=== PATIENT | male | born 1985 | race Caucasian/White ===

== ENCOUNTER 2024-02-22 07:38 | Emergency (ER) | payer OTHER, SELFPAY ==
[2024-02-22 07:39] VITALS: BP 115/79
[2024-02-22 08:04] VITALS: BMI 28.0
--- NOTE | 2024-02-22 08:35 | ED.GENMED ---
History of Present Illness
General
Chief Complaint: Musculo-Skeletal Complaint
Source: patient
Time Seen by Provider: 02/22/24 08:04
Travel History
Have you had any contact with someone who has COVID-19?: No
Do you have any symptoms of coronavirus? Fever > 100 degrees, chills, cough, shortness of breath, sore throat, loss of taste or smell, muscle aches, or headache?: No
History of Present Illness
History of Present Illness:
This patient is a 38-year-old male presents emergency department complaints of right knee pain that started Thursday, and got worse on Thursday evening associated with swelling of his right knee. The swelling gradually subsided, however he then
noted that the swelling that was originally at his knee moved to the superior hooks area associated with pain. He denies specific trauma or falls although he is very active, exercises every day, and plays with his children often as he was on
Thursday. He presents today with pain related to the superior tib-fib area. When asked about fever chills he denies fever but notes that he did have chills for a very short period time yesterday. He denies numbness, tingling, focal weakness,
chest pain, shortness of breath, drainage, or other complaints.
Past History
Past History
ED Past Medical History: None
ED Past Surgical History: None
Social History
Tobacco: Non-smoker
Alcohol: Occasional
Drug: None
Personal:
Employment: Employed
Phy Exam
Physical Exam
Physical Exam:
GENERAL: Alert , in no apparent distress
EYE: pupils equal and reactive
NECK: Supple, no significant adenopathy.
ENT: o/p clr, mmm.
CARDIAC: Regular rate and rhythm .
LUNGS: Clear breath sounds bilaterally, no acute respiratory distress, no wheezes/rales/rhonchi
ABDOMEN: Soft, without focal tenderness, no r/g, no cvat
NEUROLOGICAL: Alert and oriented, no focal neuro deficits
SKIN: Warm and dry, skin intact.
MUSCULOSKELETAL: R le with area of mild redness/warmth, sts (min) and ttp at infrapatellar/superior tibfib area, well perfused. No streaking, fluctuance, crepitus, drainage. There is a healing abraision distal lateral R calf. No calf ttp. No
bony/st ttp at knee, sl dec rom of R knee.
PSYCH: Normal and appropriate interaction.
Course
Orders/Labs/Results
Orders:
Orders
02/22/24 07:43
Knee, Right 4 or More Views [CR Knee- Right 4 Or More View*] Urgent
Comment: right knee
Reason For Exam: pain and swelling since Thursday denies injury
02/22/24 08:48
Clindamycin HCl [Cleocin] 450 mg PO NOW STA
02/22/24 08:53
Crutches-Treatment ONCE
Vital Signs
Initial and Last Documented VS:
Initial Vital Signs
Temp Pulse Resp BP Pulse Ox
98.1 F 86 16 115/79 98
02/22/24 07:39 02/22/24 07:39 02/22/24 07:39 02/22/24 07:39 02/22/24 07:39
Last Documented Vital Signs
Temp Pulse Resp BP Pulse Ox
98.1 F 82 16 120/82 98
02/22/24 07:39 02/22/24 09:24 02/22/24 09:24 02/22/24 09:24 02/22/24 09:24
*Critical Care Note
Total Time (30-74mins, 75-104mins- exclusive of procedures): Not Applicable
Update Note
Update Note:
Patient presents to the Emergency Department with __R 'knee' pain
Number and Complexity of Problems Addressed at the Encounter
� Chronic conditions affecting care:
� Acute Exacerbation and/or Progression of Chronic Illness:
� Differential Diagnosis includes: But not limited to septic arthritis, bursitis, knee strain, etc. etc.
Amount and/or Complexity of Data to be Reviewed and Analyzed
� I performed an independent evaluation of and my interpretation is:
EKG:
CT:
Xrays: Read by me, no acute disease right knee
Laboratory Studies:
Other:
� Review of other/old records reveals:
� Clinical information was obtained by an independent historian:
� Prescriptions/Medications Considered but not given:
� Further testing considered but not performed:
Risk of Complications and/or Morbidity or Mortality of Patient Management
� Social determinants of health affecting care:
� Discussion with other providers (PCP, Hospitalists, Consultants, etc):
� Escalation of care including admission/observation vs risk of discharge considered: Long discussion with patient regarding his presumed diagnosis. I have very low suspicion for septic arthritis given his exam and history here.
He has almost full range of motion of his knee, and no skin findings noted at knee itself, no associated effusion. Strongly suspect cellulitis/bursitis in the infrapatellar area. Line drawn around perimeter of area of redness. Patient is aware
of the importance of very very close follow-up, ideally within the next 24 hours, and he also took a photo of the area at my recommendation. He will repeat be referred to orthopedics and/or his PCP for this close follow-up and we will start
antibiotics at this time. Pt declines knee immobilizer, agreeable to crutches, letitia MEDINA.
ED Attending Note
-
Portions of this chart may have been created with voice recognition software.� Occasional wrong word or��sound alike� substitutions may have occurred due to the inherent limitations of voice recognition software.
Discharge Plan
Departure
Patient Disposition: Home (Routine Discharge)
Date of Disposition: 02/22/24
Time of Disposition: 08:42
Patient with high blood pressure during this ER visit?: No
Condition: Good
Discharge Problem:
Cellulitis
Instructions: How to Use Crutches, Cellulitis (Skin Infection), Adult ED
Prescriptions:
New
clindamycin HCl 300 mg capsule
300 mg PO Q6H 7 Days Qty: 28 0RF
Referrals:
Donell Salomon MD [Active] - Tomorrow
Activity Restrictions/Additional Instructions:
IF YOU DEVELOP FEVER, CHILLS, INCREASING REDNESS/WARMTH/SWELLING OR PAIN, DRAINAGE, GET WORSE, DO NOT GET BETTER, OR OTHER WORRISOME SIGNS, GO TO THE ER IMMEDIATELY!
Interventions
Interventions:
*Risk Screen - Suicide Last Done: 02/22/24 08:04
*General Assessment Last Done: 02/22/24 08:04
*Neglect/Abuse Screening Last Done: 02/22/24 08:04
ED- Fall Risk Assessment Last Done: 02/22/24 08:04
*ED COVID-19 Vaccine History Last Done: 02/22/24 07:39
*Nursing Disposition Last Done: 02/22/24 09:24
ED-Musculoskeletal Assessment Last Done: 02/22/24 08:04
Discharge Date and Time
Discharge Date/Time: 02/22/24 09:15
[2024-02-22] MEDS: CLEOCIN 450 MG PO (09:02)
--- NOTE | 2024-02-22 09:15 | EDRN ---
Reviewed discharge instructions with patient. Verbalized understanding. Patient demonstrated proper technique with crutch use.
[2024-02-22 09:24] VITALS: BP 120/82
== END 2024-02-22 09:15 | disposition home or self-care (01) ==
LOC: EMR 07:38
PROVIDERS: EMERGENCY PHYSICIAN Emergency Medicine; FAMILY PHYSICIAN Internal Medicine
DX: L03.115 Cellulitis of right lower limb (principal)
CPT/HCPCS: 99283; 73564

== ENCOUNTER 2024-02-23 16:20 | Inpatient (IN) | payer OTHER, SELFPAY ==
[2024-02-23 12:15] VITALS: BP 130/89
[2024-02-23 12:36] LABS: % Basophils 0.6 % (0-2); % Eosinophils 1.3 % (0-6); % Immature Granulocytes 0.2 % (0-0.5); % Monocytes 8.1 % (1.7-9.3); % Neutrophils 60.8 % (42.2-75.2); Absolute Basophils 0.1 10^3/uL (0-0.2); Absolute Eosinophils 0.1 10^3/uL (0-0.7); Absolute Monocytes 0.8 10^3/uL (0.1-0.6); Absolute Neutrophils 6.2 10^3/uL (1.4-6.5); Hematocrit 41.8 % (39.0-52.0); Hemoglobin 14.1 g/dL (13.0-18.0); Mean Corp Hgb Conc. 33.7 g/dL (33.0-37.0); Mean Corpuscular Hgb 26.8 pg (27.0-31.0); Mean Corpuscular Volume 79.5 fL (80.0-94.0); Mean Platelet Volume 11.2 fL (7.4-10.4); Nucleated Red Blood Cells % 0 % (-); Platelet Count 227 10^3/uL (130-400); Red Blood Cell Count 5.26 10^6/uL (4.70-6.10); Red Cell Dist. Width 14.6 % (11.5-14.5); White Blood Cell Count 10.2 10^3/uL (4.8-10.8)
[2024-02-23 12:53] LABS: ALT (SGPT) 21 U/L (0-50); AST (SGOT) 26 U/L (17-59); Albumin 4.6 g/dl (3.5-5.0); Alkaline Phosphatase 66 U/L (38-126); Blood Urea Nitrogen 20 mg/dl (9-20); Calcium 9.5 mg/dl (8.4-10.2); Carbon Dioxide 27 mmol/L (22-30); Chloride 102 mmol/L (98-107); Glucose 98 mg/dl (70-99); Potassium 4.3 mmol/L (3.5-5.1); Sodium 138 mmol/L (135-145); Total Bilirubin 0.9 mg/dl (0.2-1.3); Total Protein 7.4 g/dl (6.3-8.2); eGFR > 60.00
--- NOTE | 2024-02-23 13:39 | ED.SKININJ ---
HPI-Injury
General
Chief Complaint: Skin Problem
Source: patient
Exam Limitations: none
Time Seen by Provider: 02/23/24 13:27
Nursing documentation reviewed up to this point in time: agreed with
Travel History
Have you had any contact with someone who has COVID-19?: No
Do you have any symptoms of coronavirus? Fever > 100 degrees, chills, cough, shortness of breath, sore throat, loss of taste or smell, muscle aches, or headache?: No
History of Present Illness-Injury
Initial Injury comments:
Patient seen in ED yesterday for erythema, pain, swelling right leg below right knee. Placed on Clindamycin 300mg QID. Has had 5 doses without improvement. Erythema continues to advance. Denies fever but feels chilled. Brought to ED by spouse
for eval. No history of trauma Has small abrasion to right lat calf. No redness swelling drainage from this site.
Past History
Past History
ED Past Medical History: None
ED Past Surgical History: None
Social History
Tobacco: Non-smoker
Alcohol: Occasional
Drug: None
Personal:
Employment: Employed
Review of Systems
Review of Systems
Allergies reviewed?: Yes
All Other Systems: ROS reviewed and negative except as documented in HPI and ROS
Constitutional: Reports chills
EENT: Reports no symptoms
Respiratory: Reports no symptoms
Cardiac: Reports no symptoms
ABD/GI: Reports no symptoms
: Reports no symptoms
Musculoskeletal: Reports joint pain (Pain to RLE)
Skin: Reports other (Erythema, swelling RLE)
Neurological: Reports no symptoms
Psychiatric: Reports no symptoms
Phy Exam
General Physical Exam
General Presentation: well appearing and no apparent distress
General age: appears stated age
General Skin: warm and dry
General Habitus: normal
Musculoskeletal Exam
Musculoskeletal Exam: neuro vasc intact and other (NO swelling or redness to knee. Full ROM to right knee)
Skin Exam
Skin Exam: warm/dry, no rash and other (Erythema, swelling, pain to RLE)
Psychiatric Exam
Psychiatric Exam: normal mood/affect
Course
Orders/Labs/Results
Orders:
Orders
02/23/24 Lunch
Regular
At Your Request: Full Participation
02/23/24 12:22
CBC/With Diff [Complete Blood Count/With Diff] Urgent
CMP [Comprehensive Metabolic Panel] Urgent
02/23/24 12:23
Blood Culture Urgent
RAJESH Source: Blood/Venous
Specimen Description:
02/23/24 13:36
US Non Vasc LOWER Ext RT Urgent
Comment:
Reason For Exam: Cellulitis vs abscess right proximal lower leg
02/23/24 13:56
Vancomycin 1 Gram/200 ml [Vancocin] 1 gram in 200 ml IV NOW
02/23/24 15:11
Blood Culture Urgent
RAJESH Source: Blood/Venous
Specimen Description:
02/23/24 16:03
Admit/Transfer Patient As Directed
Co-Sign Provider:
Level of Care: Inpatient admission
Assign to:: Medical/Surgical
Physician / Group: Aubrey Alexis - [facility]
Diagnosis: RLE cellulitis, bursitis
Reason for Hospitalization: RLE cellulitis, bursitis - IV Abx, ID and ortho evals
Expected length of stay greater than two midnights?: Yes
ELOS- Estimated Length of Stay in days: 3
I certify the patient meets the requirements for IP care: Yes
02/23/24 16:04
Code Status As Directed
Resuscitation Status: Full Code
02/23/24 16:06
INFECTIOUS DISEASE CONSULT Routine
Consulting Provider: Nereida Morales
Was physician already notified: Yes
ORTHOPEDIC CONSULT Routine
Consulting Provider: Nitin Kong
Was physician already notified: Yes
02/23/24 18:21
Acetaminophen [Tylenol] 650 mg PO Q4HPRN PRN
Enoxaparin Sodium [Lovenox] 40 mg SC QPM
Morphine Sulfate 2 mg IV Q4HPRN PRN
Ondansetron Injectable [Zofran] 4 mg IV Q6HPRN PRN
Tramadol HCl [Ultram] 50 mg PO Q6HPRN PRN
VANCOMYCIN Pharmacy to Dose [VANCOCIN Pharmacy to Dose] 1 each Pharmacy To Prepare [Call Pharmacy To Prepare] 0 ml IV PER PROTOCOL
02/23/24 18:21
Activity As Directed
Activity Level: As Tolerated
Vital Signs As Directed
Frequency: Per unit guidelines
DX Deep Vein Thrombosis Video Routine
02/24/24 06:00
Basic Metabolic Panel IN AM
Complete Blood Count/No Diff IN AM
02/25/24 06:00
Basic Metabolic Panel IN AM
Complete Blood Count/No Diff IN AM
02/26/24 06:00
Basic Metabolic Panel IN AM
Complete Blood Count/No Diff IN AM
Abnormal Lab Results
02/23/24
12:22
MCV 79.5 L fL
(80.0-94.0)
MCH 26.8 L pg
(27.0-31.0)
RDW 14.6 H %
(11.5-14.5)
MPV 11.2 H fL
(7.4-10.4)
Absolute Monos (auto) 0.8 H 10^3/uL
(0.1-0.6)
02/23/24 12:22
02/23/24 12:22
Vital Signs
Initial and Last Documented VS:
Initial Vital Signs
Temp Pulse Resp BP Pulse Ox
98.0 F 77 17 130/89 97
02/23/24 12:15 02/23/24 12:15 02/23/24 12:15 02/23/24 12:15 02/23/24 12:15
Last Documented Vital Signs
Temp Pulse Resp BP Pulse Ox
98.4 F 84 16 137/78 95
02/23/24 18:24 02/23/24 18:24 02/23/24 18:24 02/23/24 18:24 02/23/24 18:24
*Critical Care Note
Total Time (30-74mins, 75-104mins- exclusive of procedures): Not Applicable
Update Note
Update Note:
Patient to ED with worsening pain and redness to RLE. Seen in ED yesterday for same. Placed on QID clindamycin without improvement. Denies fever but reports chills. Will admit to hospitalist for cellulits, outpatient antibiotic failure.
ED Attending Note
-
Portions of this chart may have been created with voice recognition software.� Occasional wrong word or��sound alike� substitutions may have occurred due to the inherent limitations of voice recognition software.
Discharge Plan
Departure
Patient Disposition: Admit
Date of Disposition: 02/23/24
Time of Disposition: 13:53
Presentation/result/management discussed w/ accepting MD/DO: Hospitalist
Condition: Fair
Covid-19: Not Applicable
Discharge Problem:
Cellulitis of right lower leg
Interventions
Interventions:
*Risk Screen - Suicide Last Done: 02/23/24 12:15
*General Assessment Last Done: 02/23/24 12:15
*Neglect/Abuse Screening Last Done: 02/23/24 12:15
*ED COVID-19 Vaccine History Last Done: 02/23/24 12:15
*Nursing Disposition Last Done: 02/23/24 18:46
ED-Skin Assessment Last Done: 02/23/24 13:23
Discharge Date and Time
Discharge Date/Time: 02/23/24 18:47
[2024-02-23] MEDS: VANCOCIN 200 IV (15:10)
--- NOTE | 2024-02-23 16:29 | CON.ID ---
Consultation
-
Date/Time Consultation Requested: 02/23/2024, 1606
Date/Time Consultation Performed: 02/23/2024, 1631
Requesting Provider: Dr. Aubrey Alexis
Performing Provider: Dr. Nereida Morales
Reason for Consultation: Worsening leg cellulitis on clinda
Chief Complaint / Past History
Chief Complaint
right below knee swelling/redness
History of Present Illness
38 year old healthy who was playing with his children down in the basement on his hands and knees. Later he noted pain over distal part of the knee. There was localized edema. Thursday erythema developed from knee down to part of hooks. He came to ED
02/21. Knee xray unremarkable. He was discharged on clindamycin 300mg qid. However, erythema continued to progress down the marked line. His PCP directed him to come to ED today. No fever. + chills. + pain on side of knee. US shows possible
infrapatellar bursitis.
Past History
Past Medical History: None
Allergy History:
No Known Allergies Allergy (Verified 02/22/24 07:42)
Medications Reviewed: Yes
Current Antibiotics:
Vancomycin x 1
Social History
Tobacco: Non-Smoker
Drug: None
Personal:
Living: With Family (and 1 dog)
Employment: Employed (Sales)
Family History
Family History: Not Pertinent
Review of Systems
Review of Systems
General: Negative Change in Appetite
HEENT: Negative Sinus Problems, Headache or Pharyngitis
Cardiovascular: Negative Chest Pain or Dyspnea
Respiratory: Negative Dyspnea or Cough
Gasteroenterology: Negative Nausea or Vomiting
Genital / Urological: Negative Dysuria or Flank Pain
Neurological: Negative Headache or Dizziness
All systems: All other systems were reviewed and were negative
Vital Signs
Temp Pulse Resp BP Pulse Ox
98.0 F 77 17 130/89 97
03/26/24 12:15 02/23/24 12:15 02/23/24 12:15 02/23/24 12:15 02/23/24 12:15
Physical Exam
Physical Exam
Constitutional: No Acute Distress and Comfortable
Eyes: No Conjunctival Hemorrhage and Sclera Anicteric
Cardiovascular: Regular Rate and S1/S2
Pulmonary: Clear
Gastrointestinal: Soft, Non Tender and Non Distended
Genito-Urinary: Negative CVA Tenderness
Extremities: Edema (RLE 1+ edema) and Other (RLE: distal patella + localized round induration semi-firm, tender, + erythema extends down hooks to above ankle, anteriorly)
Musculoskeletal: Other (ROM right knee limited due to discomfort)
Neurological: AO x 3
Lab / Diagnostic Study Results
02/23/24 12:22
02/23/24 12:22
Abs Immat Gran (auto) 0.0 10^3/uL (0-0.05) 02/23/24 12:22
Absolute Neuts (auto) 6.2 10^3/uL (1.4-6.5) 02/23/24 12:22
Absolute Lymphs (auto) 3.0 10^3/uL (1.2-3.4) 02/23/24 12:22
Absolute Monos (auto) 0.8 10^3/uL (0.1-0.6) H 02/23/24 12:22
Absolute Basos (auto) 0.1 10^3/uL (0-0.2) 02/23/24 12:22
Immature Gran % 0.2 % (0-0.5) 02/23/24 12:22
Neutrophils % 60.8 % (42.2-75.2) 02/23/24 12:22
Lymphocytes % 29.0 % (20.5-51.1) 02/23/24 12:22
Monocytes % 8.1 % (1.7-9.3) 02/23/24 12:22
Eosinophils % 1.3 % (0-6) 02/23/24 12:22
Basophils % 0.6 % (0-2) 02/23/24 12:22
Microbiology Results
Micro:
02/23/24 15:11 Blood Culture - Pending
Blood/Venous
02/23/24 12:23 Blood Culture - Pending
Blood/Venous
02/23/24 RLE US: Small amount of fluid deep to the patellar tendon, which appears to be located in the deep infrapatellar bursa and may be an incidental finding or secondary to a mild deep infrapatellar bursitis.
02/22/24 Right knee xray: No acute osseous abnormality.
Assessment / Plan
# RLE cellulitis, progressive
# Probable infrapatellar bursitis (septic vs nonseptic) - correlates timing after pt playing with his children on his hands and knees on gym mat, basement floor, etc
- Start cefazolin 2g IV q8h.
- Follow clinically.
Care Review
Plan reviewed with: Physician (Dr. Hackett)
--- NOTE | 2024-02-23 16:34 | CON.ORTHO ---
Consultation
-
Date/Time Consultation Requested: 02/23/2024 1608
Date/Time Consultation Performed: 02/23/2024 1635
Requesting Provider: Aubrey Alexis
Performing Provider: Rubin Kong
Reason for Consultation: R leg cellulitis
Consultation - Orthopedics
History
Orthopedic Surgery Note
CC: R leg pain
HPI: 38-year-old male presents for evaluation of right leg pain starting 3 days ago. Patient denies direct trauma. Has been on his hands and knees playing with his young kids in the basement. He noticed some fullness anteriorly and then after
that developed some erythema around the hooks. He started p.o. antibiotics but then was noting increased erythema spreading throughout the hooks anteriorly. He has pain about the tibial tubercle. He has a history of disorders.
PMH/PSH: Denies
Medications: reviewed
Family History: Family history was reviewed. Noncontributory
Social history: Nonsmoker, no illicit drugs
Exam
General appearance: Pleasant. No acute distress.
Head: Normocephalic/atraumatic
Nose: No lesions or discharge.
Skin: see below
Lungs: No audible wheezing, no cough or sputum production
Musculoskeletal:
RLE:
superficial abrasion over anterior hooks and posterior calf
erythema about pretibial and infrapatellar region
No prepatellar or infrapatellar effusion
No knee joint effusion
pain with active knee motion
fires ehl/fhl/ta/gs
sensation intact to light touch distally s/s/sp/dp/t
Toes wwp, 1+ DP
No tenderness over bony prominences or with passive joint ROM
Imaging:
Xrays: Knee xray 01/24/2024 shows well preserved joint spaces without signs of fracture
US RLE 02/23/2024 shows no signs of absess. Small amount of fluid deep to patella tendon
AP: 38-year-old male with right lower extremity cellulitis. He does not have a prepatellar or infrapatellar effusion that is able to be aspirated. Discussed IV antibiotic treatment for cellulitis. Low likelihood of need for surgical treatment of
infrapatellar bursectomy. If his situation changes clinically, then can reassess. All questions were answered.
> 75 minutes was spent reviewing the clinical information, evaluating the patient, and formulating clinical plan.
Rubin Kong MD
Allergies / Home Medications
Allergy/AdvReac Type Severity Reaction Status Date / Time
No Known Allergies Allergy Verified 02/22/24 07:42
Medication Instructions Recorded
clindamycin HCl 300 mg capsule 300 mg PO Q6H 7 days #28 caps 02/22/24
ibuprofen 400 mg tablet 400 mg PO Q6HPRN PRN mild pain 02/23/24
Vital Signs / Lab Results
Temp Pulse Resp BP Pulse Ox
98.0 F 77 17 130/89 97
02/23/24 12:15 02/23/24 12:15 02/23/24 12:15 02/23/24 12:15 02/23/24 12:15
02/23/24 12:22
02/23/24 12:22
--- NOTE | 2024-02-23 16:37 | HPS.HSE ---
Family Physician
-
Family Physician: Swapnil Peñaloza
Chief Complaint
-
RLE redness
History of Present Illness
38 y/o M no PMH, presents to ER for worsening cellulitis. Patient seen in ER 24 hours earlier for redness, swelling of RLE and discharged on Clindamycin. Took 5 doses, and states his redness is advancing past marked sites. Reports similar degree of
swelling. Reports patellar knee pain. No fever but endorses chills. Saw PCP today who referred to ER for IV Abx. Pt denies trauma. No bug/tick bites. has a chronic abrasion R lateral calf.
In ER, received Vanco.
Medical History
Past Medical History
Past Medical History: Reports None
Past Surgical History: Reports None
Social History
Tobacco: Non-smoker
Alcohol: Occasional (social)
Drug: None
Personal:
Living: With Family
Employment: Employed
Family History
Family History: Not pertinent
Allergies / Home Medications
Allergies reflects when Allergies were last updated in [employer].
Home Medications with original date entered in [employer]
Allergy/Medication List:
Allergies
Allergy/AdvReac Type Severity Reaction Status Date / Time
No Known Allergies Allergy Verified 02/22/24 07:42
Home Medications
clindamycin HCl 300 mg capsule 300 mg PO Q6H 7 days #28 caps 02/22/24
ibuprofen 400 mg tablet 400 mg PO Q6HPRN PRN mild pain 02/23/24
Review of Systems
-
A 12 point ROS was completed and negative except as noted: Yes
Physical Exam
Vital Signs
Vital Signs
Temp Pulse Resp BP Pulse Ox
98.0 F 77 17 130/89 97
02/23/24 12:15 02/23/24 12:15 02/23/24 12:15 02/23/24 12:15 02/23/24 12:15
Physical Exam
General: Well Developed and Well Nourished
HEENT: NormoCephalic and Anicteric
Respiratory: Clear; No Wheezes or Rales
Cardiac: S1/S2 and Regular Rhythm
GI: Soft, Non Tender and Non Distended
Musculoskeletal: Other (RLE edema, cellulitis, patellar tenderness, no joint effusion of the knee)
Neuro: AO x 3
Hematologic/Lymphatic: No Lymphadenopathy
Psych: Calm
Laboratory Results
-
02/23/24 12:22
02/23/24 12:22
Laboratory Results
Total Bilirubin 0.9 mg/dl (0.2-1.3) 02/23/24 12:22
AST 26 U/L (17-59) 02/23/24 12:22
ALT 21 U/L (0-50) 02/23/24 12:22
Alkaline Phosphatase 66 U/L (38-126) 02/23/24 12:22
Data Reviewed
-
Ultrasound: Report Reviewed by me and Discussed with Patient
Lab Data: Labs Reviewed by me and Discussed with Patient
Impression/Plan
-
Assessment:
RLE cellulitis
- US: Small amount of fluid deep to the patellar tendon, which appears to be located in the deep infrapatellar bursa and may be an incidental finding or secondary to a mild deep infrapatellar bursitis.
- IV Vanco, IV Ancef
- ID and ortho consults
- Ambulate as tolerated
- Elevate LEs
- consider compression
DVT ppx: Lovenox
Code: Full
[2024-02-23 16:48] VITALS: BMI 26.7
[2024-02-23 18:24] VITALS: BP 137/78; BMI 27.2
[2024-02-23] MEDS: ANCEF 10 IV (19:19)
[2024-02-23] MEDS: LOVENOX 40 MG SC (19:19)
[2024-02-23 23:43] VITALS: BP 129/76
[2024-02-24] MEDS: ANCEF 10 IV ×3 (01:01→17:54)
--- NOTE | 2024-02-24 03:30 | DOWNTIME ---
There was a [employer] Client [employer] Technical Downtime on 02/24/2024 from 0100 to 02/24/2024 at 0322. Downtime documentation of patient's care, including medication administrations, has been reconciled in the electronic record per guidelines. Refer to the
patient's paper chart under the miscellaneous tab to see printed paper medication records and downtime forms.
[2024-02-24 06:19] LABS: Hematocrit 42.2 % (39.0-52.0); Hemoglobin 14.2 g/dL (13.0-18.0); Mean Corp Hgb Conc. 33.6 g/dL (33.0-37.0); Mean Corpuscular Hgb 26.9 pg (27.0-31.0); Mean Corpuscular Volume 79.9 fL (80.0-94.0); Mean Platelet Volume 11.3 fL (7.4-10.4); Platelet Count 206 10^3/uL (130-400); Red Blood Cell Count 5.28 10^6/uL (4.70-6.10); Red Cell Dist. Width 14.6 % (11.5-14.5); White Blood Cell Count 8.8 10^3/uL (4.8-10.8)
[2024-02-24 06:46] LABS: Blood Urea Nitrogen 16 mg/dl (9-20); Calcium 9.4 mg/dl (8.4-10.2); Carbon Dioxide 27 mmol/L (22-30); Chloride 103 mmol/L (98-107); Estimated Creatinine Clearance 110 ml/min; Glucose 97 mg/dl (70-99); Potassium 4.8 mmol/L (3.5-5.1); Sodium 139 mmol/L (135-145); eGFR > 60.00
[2024-02-24 07:10] VITALS: BP 147/89
--- NOTE | 2024-02-24 09:46 | W.PN.UPDATE ---
Update Note
Progress Note Update
I evaluated the patient at bedside. The patient reports continued pain over the anterior aspect of the lower leg and tibial tubercle. He is on IV antibiotics. No subjective fevers chills.
On exam, the patient is comfortable in bed. There is erythema over the anterior aspect of the right lower leg and tibial tubercle. No bursal effusion. Motor and sensation intact distally. Knee ROM 0-120 limited by pain anteriorly at patella
tendon insertion
Assessment and plan: 38-year-old male with right lower extremity cellulitis. No bursal effusion to aspirate. Recommend continued medical treatment with IV antibiotics.
Rubin Kong MD
--- NOTE | 2024-02-24 11:02 | W.PN.HOSP.TC ---
Today's Communication/Plan
-
continue IV Abx per ID; follow cultures
monitor symptoms
elevate legs
Assessment / Plan
Assessment / Plan
Assessment:
RLE cellulitis
- US: Small amount of fluid deep to the patellar tendon, which appears to be located in the deep infrapatellar bursa and may be an incidental finding or secondary to a mild deep infrapatellar bursitis.
- Ortho following; no surgical intervention
- ID following; continue IV Ancef. Follow cultures
- Ambulate as tolerated
- Elevate LEs
- consider compression
DVT ppx: Lovenox
Code: Full
Anticipated Discharge: 24 - 48 hours
Subjective/Interval History
-
Date of Service: February 24, 2024
denies fever/chills
Objective Data
-
Labs:
Laboratory Results
02/24/24
04:59
WBC 8.8
Hgb 14.2
Hct 42.2
Plt Count 206
Sodium 139
Potassium 4.8
Chloride 103
Carbon Dioxide 27
BUN 16
Creatinine 0.9
Glucose 97
Calcium 9.4
Vital Signs:
Vital Signs
Temp Pulse Resp BP Pulse Ox
98.4 F 78 16 147/89 96
02/24/24 07:10 02/24/24 07:10 02/24/24 07:10 02/24/24 07:10 02/24/24 07:10
Physical Exam
-
General: No Apparent Distress
HEENT: Normocephalic and Atraumatic
Respiratory: Negative Wheezes or Rales
Cardiac: Regular Rhythm and S1/S2
GI: Soft and Nontender
Genito-urinary: No Costovertebral Tender
Musculoskeletal: No Edema and Other (lightened erythema)
Neuro: AO x 3
Hematologic / Lymphatic: No Lymphadenopathy
Psych: Calm
Data Reviewed
-
Total Time Spent with Patient (in minutes): 42
Labs: Labs Reviewed by me
[2024-02-24] MEDS: TYLENOL 650 MG PO (12:17)
--- NOTE | 2024-02-24 12:29 | W.PN.ID1 ---
Date of Service
Date of Service: February 24, 2024
Today's Communication
Continue cefazolin.
Assessment / Plan
# RLE acute cellulitis, improved today.
# Probable infrapatellar bursitis (septic vs nonseptic) - correlates timing after pt playing with his children on his hands and knees on gym mat, basement floor, etc
- Continue cefazolin 2g IV q8h (d2).
- If continues to improve, anticipate dc home tomorrow.
Chief Complaint
-: Cellulitis
Subjective / Review of Systems
Lump is painful. Otherwise leg swelling redness better. This morning there was some extension of erythema down.
Vital Signs / Physical Exam
Vital Signs
Vital Signs
Temp Pulse Resp BP Pulse Ox
98.4 F 78 16 147/89 96
02/24/24 07:10 02/24/24 07:10 02/24/24 07:10 02/24/24 07:10 02/24/24 07:10
Physical Exam
Constitutional: No Acute Distress and Comfortable
Cardiovascular: Regular Rate and S1/S2
Pulmonary: Clear
Gastrointestinal: Non Tender and Non Distended
Extremities: Edema (RLE edema decreasing) and Erythema (RLE: distal erythema decrease, erythema more localize to area below knee with tender induration)
Objective Data
Lab Data
Lab Results
02/24/24 04:59
02/24/24 04:59
Estimated Creat Clear 110 ml/min 02/24/24 04:59
Total Bilirubin 0.9 mg/dl (0.2-1.3) 02/23/24 12:22
AST 26 U/L (17-59) 02/23/24 12:22
ALT 21 U/L (0-50) 02/23/24 12:22
Alkaline Phosphatase 66 U/L (38-126) 02/23/24 12:22
Most recent labs reviewed.
Micro Results:
02/23/24 15:11 Blood Culture - Pending
Blood/Venous
02/23/24 12:23 Blood Culture - Pending
Blood/Venous
02/23/24 RLE US: Small amount of fluid deep to the patellar tendon, which appears to be located in the deep infrapatellar bursa and may be an incidental finding or secondary to a mild deep infrapatellar bursitis.
02/22/24 Right knee xray: No acute osseous abnormality.
[2024-02-24 15:05] VITALS: BP 137/76
--- NOTE | 2024-02-24 15:58 | CM ---
Alert awake oriented patient who lives with his Kristina who lives in a 2 story home with 2 step to enter and 14 steps to bed and bathroom. He is independent in driving and in all activities of daily living.He was offered Vn he declined need.
[facility] V[facility] hx / No SNF history
Pharmacy [facility]
PCP DR Peñaloza
PLAN Home Declined VN
[2024-02-24] MEDS: LOVENOX SC (17:54)
[2024-02-24 23:00] VITALS: BP 111/72
[2024-02-25] MEDS: ANCEF 10 IV ×2 (01:59→09:34)
[2024-02-25] MEDS: FLUSH (NSS) 2 FLUSH IV ×2 (02:00→09:35)
[2024-02-25 06:18] LABS: Hematocrit 42.1 % (39.0-52.0); Hemoglobin 14.2 g/dL (13.0-18.0); Mean Corp Hgb Conc. 33.7 g/dL (33.0-37.0); Mean Corpuscular Volume 80.2 fL (80.0-94.0); Mean Platelet Volume 11.3 fL (7.4-10.4); Platelet Count 234 10^3/uL (130-400); Red Blood Cell Count 5.25 10^6/uL (4.70-6.10); Red Cell Dist. Width 14.6 % (11.5-14.5); White Blood Cell Count 6.7 10^3/uL (4.8-10.8)
[2024-02-25 06:35] LABS: Blood Urea Nitrogen 16 mg/dl (9-20); Calcium 9.2 mg/dl (8.4-10.2); Carbon Dioxide 27 mmol/L (22-30); Chloride 106 mmol/L (98-107); Estimated Creatinine Clearance 124 ml/min; Glucose 97 mg/dl (70-99); Potassium 4.7 mmol/L (3.5-5.1); Sodium 139 mmol/L (135-145); eGFR > 60.00
[2024-02-25 07:00] VITALS: BP 130/85
--- NOTE | 2024-02-25 10:24 | W.PN.HOSP.TC ---
Addendum entered and electronically signed by Aubrey Alexis MD 02/25/24 10:32:
More than 30 minutes spent in discharge including
Final examination of the patient
Summarizing hospital stay
Instructions for continuing care to all relevant caregivers
Preparation of discharge records, prescriptions, and referral forms
Total time spent (in minutes): 42
Original Note:
Today's Communication/Plan
-
DC today if ID agrees
Assessment / Plan
Assessment / Plan
Assessment:
RLE cellulitis
- US: Small amount of fluid deep to the patellar tendon, which appears to be located in the deep infrapatellar bursa and may be an incidental finding or secondary to a mild deep infrapatellar bursitis.
- Ortho following; no surgical intervention
- ID following; continue IV Ancef. Hopefully transition to PO today
- Bcx NGTD
- Ambulate as tolerated; patient reports this is going well
- Elevate LEs
DVT ppx: Lovenox
Code: Full
Anticipated Discharge: Today
Subjective/Interval History
-
Date of Service: February 25, 2024
reports less pain
no fever/chills
redness improving
Bcx NGTD
Objective Data
-
Labs:
Laboratory Results
02/25/24
05:06
WBC 6.7
Hgb 14.2
Hct 42.1
Plt Count 234
Sodium 139
Potassium 4.7
Chloride 106
Carbon Dioxide 27
BUN 16
Creatinine 0.8
Glucose 97
Calcium 9.2
Vital Signs:
Vital Signs
Temp Pulse Resp BP Pulse Ox
98.1 F 83 18 130/85 97
02/25/24 07:00 02/25/24 07:00 02/25/24 07:00 02/25/24 07:00 02/25/24 07:00
I&O
02/24/24 02/25/24 02/26/24
06:59 06:59 06:59
Intake Total 1140 / 1140
Balance 1140 / 1140
Physical Exam
-
General: No Apparent Distress
HEENT: Normocephalic and Atraumatic
Respiratory: Negative Wheezes or Rales
Cardiac: Regular Rhythm and S1/S2
GI: Soft and Nontender
Musculoskeletal: Other (RLE, erythema improving, swelling improving, less patellar tenderness)
Neuro: AO x 3
Hematologic / Lymphatic: No Lymphadenopathy
Psych: Calm
Data Reviewed
-
Total Time Spent with Patient (in minutes): 42
Labs: Labs Reviewed by me
--- NOTE | 2024-02-25 10:24 | W.PN.ID1 ---
Date of Service
Date of Service: February 25, 2024
Today's Communication
Can dc home today. See below.
Assessment / Plan
# RLE acute cellulitis, improving
# Probable infrapatellar bursitis (septic vs nonseptic) - correlates timing after pt playing with his children on his hands and knees on gym mat, basement floor, etc
- Transition cefazolin 2g IV q8h (d3) to cephalexin 1000 mg po tid x 14 more days.
- If 'bursitis' persist after abx, follow-up with ortho.
Chief Complaint
-: Cellulitis
Subjective / Review of Systems
Leg much improved. Pain improved. Ambulated without crutches.
Vital Signs / Physical Exam
Vital Signs
Vital Signs
Temp Pulse Resp BP Pulse Ox
98.1 F 83 18 130/85 97
02/25/24 07:00 02/25/24 07:00 02/25/24 07:00 02/25/24 07:00 02/25/24 07:00
Physical Exam
Constitutional: No Acute Distress and Comfortable
Extremities: Edema (resolving) and Erythema (Significant decreased- mild local erythema over distal anterior knee with induration)
Objective Data
Lab Data
Lab Results
02/25/24 05:06
02/25/24 05:06
Estimated Creat Clear 124 ml/min 02/25/24 05:06
Total Bilirubin 0.9 mg/dl (0.2-1.3) 02/23/24 12:22
AST 26 U/L (17-59) 02/23/24 12:22
ALT 21 U/L (0-50) 02/23/24 12:22
Alkaline Phosphatase 66 U/L (38-126) 02/23/24 12:22
Most recent labs reviewed.
Micro Results:
02/23/24 15:11 Blood Culture - Preliminary
Blood/Venous No Growth in 24 hours- Final report to follow
02/23/24 12:23 Blood Culture - Preliminary
Blood/Venous No Growth in 24 hours- Final report to follow
02/23/24 RLE US: Small amount of fluid deep to the patellar tendon, which appears to be located in the deep infrapatellar bursa and may be an incidental finding or secondary to a mild deep infrapatellar bursitis.
02/22/24 Right knee xray: No acute osseous abnormality.
Care Review
Plan reviewed with: Physician (Dr. Alexis)
--- NOTE | 2024-02-25 10:31 | W.DS.TRANS ---
DC Summary - Deck [employer]ic
-
Discharge Instructions:
Discharge Diagnosis/Procedures RLE cellulitis with patellar bursitis
Diet Regular
Activity As tolerated
Bathing Restrictions None
Instructions:
Stand-Alone Forms:
Changes to Home Medications: No
Discharge Medications:
DC Medications w/original date entered in [facility]
ibuprofen 400 mg tablet 400 mg PO Q6HPRN PRN mild pain 02/23/24
acetaminophen 325 mg tablet 650 mg (2 x 325 mg) PO Q4HPRN PRN mild pain/VELEZ/temp> 100.4F #60 tabs 02/25/24
cephalexin 500 mg capsule 1,000 mg (2 x 500 mg) PO TID #84 caps 02/25/24
Home Medication Changes
Pending Results: No
Total time spent discharging patient (in min): 42
--- NOTE | 2024-02-25 10:34 | CM ---
MD entered order for discharge.
spoke with patient he is happy to go home.
His Kristina will drive him home.
Offered Vn he declined need,
PLAN Home no needs
[2024-02-25 11:00] VITALS: BP 129/78
== END 2024-02-25 11:36 | disposition home or self-care (01) | DRG 603 ==
LOC: 4 EAST ACU 16:20
PROVIDERS: Emergency Medicine; ADMITTING PHYSICIAN Internal Medicine; CONSULT PHYSICIAN Internal Medicine Infectious Disease; CONSULT PHYSICIAN Orthopaedic Surgery; EMERGENCY PHYSICIAN Emergency Medicine; FAMILY PHYSICIAN Internal Medicine
DX: L03.115 Cellulitis of right lower limb (principal); M70.41 Prepatellar bursitis, right knee
CPT/HCPCS: 76882; 80048; 80053; 85025; 85027; 87040; 96365; 99285